=== PATIENT | female | born 2005 | race Caucasian/White ===

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

== ENCOUNTER 2024-11-17 07:08 | Day surgery (SDC) | payer MEDICAID, OTHER ==
[2024-09-22] MEDS: AMPICILLIN SOD/SULBACTAM SOD 3 GM in SODIUM CHLORIDE 0.9% 100ML ADD 100 ML IV ONE (09:02)
[~2024-11-17] VITALS: Ht 157.5 cm; Wt 102.5 kg
[~2024-11-17 07:08] MED LIST: ALBU2.5V10 INH; ALBU90AE2 IH; FLUO-365 PO; LORA-1041 PO; NORE1TAB90 PO; OMEP40CA5 PO; TOPI-21 PO; TREL1AER INH
[2024-11-17] MEDS ORDERED: SUGAMMADEX SODIUM 500 MG/5 ML VIAL (BRIDION) As Ordered ONE (07:50)
[2024-11-17] MEDS ORDERED: ONDANSETRON 4MG 2ML VIAL As Ordered ONE (07:50)
[2024-11-17] MEDS ORDERED: LIDOCAINE 2% 100MG/5ML SDV (FOR ANES.) As Ordered ONE (07:50)
[2024-11-17] MEDS ORDERED: propofoL 200 MG/20 ML VIAL As Ordered ONE (07:51)
[2024-11-17] MEDS ORDERED: ROCURONIUM BROMIDE 50MG/5ML VIAL As Ordered ONE (07:51)
[2024-11-17] MEDS: LR 1,000 ML IV SCH (07:52)
[2024-11-17] MEDS ORDERED: MIDAZOLAM INJ 2MG/2ML VIAL As Ordered ONE (07:57)
[2024-11-17] MEDS ORDERED: fentaNYL 100 MCG/2 ML INJECTION As Ordered ONE (07:57)
[2024-11-17] MEDS: OXYMETAZOLINE 0.05% NASAL SPRAY As Ordered ONE (09:02)
[2024-11-17] MEDS ORDERED: ACETAMINOPHEN 1000MG/100ML IV BAG As Ordered ONE (09:07)
[2024-11-17] MEDS: BACITRACIN OINTMENT 30GM TUBE As Ordered ONE (09:15)
[2024-11-17] MEDS: CHLORHEXIDINE GLUCONATE 0.12 % 15ML UDC (PERIDEX ORAL RINSE) As Ordered ONE (09:15)
[2024-11-17] MEDS: AMPICILLIN SOD/SULBACTAM SOD 3 GM in D5W MINI-BAG 100 ML IV ONE (09:15)
[2024-11-17] MEDS: LIDOCAINE 2% W/ EPINEPHRINE 1.7 ML DENTAL INJ As Ordered ONE (09:16)
[2024-11-17] MEDS: BUPivacaine LIPOSOME/PF 266MG 20ML VIAL (13.3MG/ML)(EXPAREL) As Ordered ONE (09:32)
[2024-11-17] MEDS ORDERED: fentaNYL 100 MCG/2 ML INJECTION IV PRN (09:35)
[2024-11-17] MEDS ORDERED: LR 1,000 ML IV SCH (09:35)
[2024-11-17] MEDS ORDERED: ALBUTEROL SULFATE 2.5MG/0.5ML INH CONCENTRATE NEB SOLN INH ONE (09:35)
[2024-11-17] MEDS ORDERED: ONDANSETRON 4MG 2ML VIAL IV PRN (09:35)
[2024-11-17 11:19] VITALS: BP 135/84; TEMP 98; O2SAT 96
== END 2024-11-17 11:29 | disposition home or self-care (01) ==
LOC: M SDC 07:08
PROVIDERS: ATTEND Dentist
DX: K02.9 Dental caries, unspecified (principal); K01.1 Impacted teeth; F40.232 Fear of other medical care; E66.01 Morbid (severe) obesity due to excess calories; Z68.41 Body mass index [BMI] 40.0-44.9, adult; K14.8 Other diseases of tongue; J30.1 Allergic rhinitis due to pollen; Z79.899 Other long term (current) drug therapy; Z87.891 Personal history of nicotine dependence
CPT/HCPCS: 81025; 88300; D7220; J0131; J0666; J1100; J2250; J2405; J3010